=== PATIENT | male | born 2000 | race Caucasian/White ===

== ENCOUNTER 2024-04-12 13:45 | Emergency (ER) | payer MEDICAID ==
[~2024-04-12] VITALS: Ht 170.2 cm; Wt 76.6 kg
[2024-04-12] MEDS ORDERED: PENI-88 PO (15:15)
[2024-04-12 15:23] VITALS: BP 123/64; PULSE 63; RESP 16; TEMP 98.4; O2SAT 99
== END 2024-04-12 15:24 | disposition home or self-care (01) ==
LOC: ER 13:46
DX: J02.9 Acute pharyngitis, unspecified (principal)
CPT/HCPCS: 99283